=== PATIENT | female | born 1970 | race Caucasian/White ===

== ENCOUNTER 2017-01-24 15:54 | Emergency (ER) | payer OTHER ==
[~2017-01-24] VITALS: Ht 188 cm; Wt 100.0 kg
--- NOTE | 2017-01-24 15:55 | ED.REPORT ---
HPI-Trauma Multiple Date of Service Jan 24, 2017 ED Provider: Luiz Mesa Patient is a 46 year old female who presents to the ED via EMS complaining of neck pain s/p falling down 15 stairs at home with LOC. Associated symptoms include right upper abdominal pain and L ankle pain. Patient remembers falling, losing consciousness, waking, and then crawling up the stairs. She awoke feeling dizzy this morning prior to her fall but has seen her PCP for this problem as it has persisted for several weeks. She denies any new dizziness or vertiginous symptoms. She denies any weakness. Per medics, she has been GCS 15 and received 5 of morphine and 4 Zofran en route. She denies pelvic pain, vision changes, or any other symptoms. Nursing Notes Stated Complaint: FALL Nursing Notes Reviewed: Yes Allergies: Coded Allergies: sumatriptan (Verified Allergy, Severe, Shortness of Breath, 01/24/17) Scheduled PRN Hydrocodone-Acetaminophen 5-325 mg (Hydrocodone-Acetaminophen 5-325 mg) 1 Each Tablet 1 TABLET PO Q4H PRN PRN For Pain General Time Seen by Provider: 15:55 Chief Complaint Other (Fall down stairs ) Hx Obtained From: Patient, EMS Arrived By: Ambulance Onset Occurred: Just prior to arrival Past Medical History Past Medical History Reports: Hypertension Past Surgical History Unknown Smoking History Unknown if Ever Smoker Review of Systems Review of Systems Note: -pelvic pain GI: Reports: Abdominal pain Musculoskeletal: Reports: Joint pain, Neck pain Neurologic: Reports: Change LOC, Denies: Vision change Complete sys rev & neg: except as marked. Physical Exam Physical Exam Notes: FAST negative Initial Vital Signs Vital Signs (First) Date Time Temp Pulse Resp B/P Pulse Ox O2 Delivery O2 Flow Rate FiO2 01/24/17 18:49 36.6 87 15 135/100 95 Room Air Initial VS: Reviewed General/Constitutional: Awake, Alert, Well developed Head / Eyes: Atraumatic, Normocephalic, PERRL 3 mm pupils Trauma - Neck Specific: Positive: Immobilized - C Collar, Immobilized - spine board Mid cervical C4-5 tenderness. no deformity or step off Respiratory / Chest: Breath sounds NL, Breath sounds = bilat, No respiratory distress, No chest wall deformity Mild R chest wall tend Cardiovascular: Peripheral circulation NL, Pulses = bilaterally Abdomen: Soft Tender to palpation at RUQ Back: Atraumatic Mild lumbosacral tend, Neurologic: Oriented X3, Speech NL ENT: Tympanic membs NL Upper Extremity / MS: Atraumatic Movement of L arm causes tenderness in neck Lower Extremity / Pelvis / MS: Atraumatic Ankle / Foot: No deformity Left Ankle: Positive: Tenderness present... Good DP pulses bilat Female Genitourinary: Helper Teacher present, Atraumatic no blood at the meatus Rectum / Perineum: Sphincter tone NL Interpretation & Diagnostics Lab Results Interpretation Result Diagram: 01/24/17 1638 01/24/17 1557 Test 01/24/17 15:57 01/24/17 16:38 White Blood Count 13.2th/mm3 (3.8-10.1) Red Blood Count 5.13mil/mm3 (3.90-5.20) Mean Corpuscular Volume 88.1fL (81-100) Mean Corpuscular Hemoglobin 29.2pg (27.0-35.0) Mean Corpuscular Hemoglobin Concent 33.2% (32.0-37.0) Red Cell Distribution Width 13.5% (12.3-15.4) Platelet Count 323bil/L (150-400) Neutrophils (%) (Auto) 68.3% (40-74) Lymphocytes (%) (Auto) 23.0% (14-46) Monocytes (%) (Auto) 6.1% (4-12) Eosinophils (%) (Auto) 1.8% (0-5) Basophils (%) (Auto) 0.2% (0-3) Prothrombin Time 9.9sec (8.1-12.5) Prothromb Time International Ratio 0.93ratio Activated Partial Thromboplast Time 26.5sec (22.8-33.0) Sodium Level 134mEq/L (134-144) Potassium Level 4.5mEq/L (3.5-5.2) Chloride Level 96mEq/L (97-108) Carbon Dioxide Level 23mmol/L (18-29) Blood Urea Nitrogen 11mg/dL (6-24) Creatinine 0.61mg/dL (0.57-1.00) Estimat Glomerular Filtration Rate 151mL/min (>59) Glucose Level 117mg/dL (60-99) Calcium Level 9.8mg/dL (8.5-10.1) Total Bilirubin 0.5mg/dL (0.0-1.2) Aspartate Amino Transf (AST/SGOT) 41U/L (0-50) Alanine Aminotransferase (ALT/SGPT) 44U/L (0-32) Alkaline Phosphatase 82U/L (25-150) Total Protein 7.5g/dL (6.4-8.4) Albumin 4.3g/dL (3.4-5.0) Human Chorionic Gonadotropin, Qual Negative (Negative) Hold Lu Top Tube Received (Received) Alcohols < 10mg/dL (0-10) Hemoglobin 13.9g/dL (12.0-15.6) Hematocrit 41.8% (35.0-46.0) X-Ray Chest Interpretation Chest Xray Interpretation: IMPRESSION: No acute cardiopulmonary disease. Dictated by: Joel Wild M.D. on 01/24/2017 at 15:55 Approved by: Joel Wild M.D. on 01/24/2017 at 15:56 View: Portable, 1 view Interpretation / Wet Read by: Interpret - Radiologist X-Ray Interpretation Xray Interpretation: IMPRESSION: Status post remote distal fibular and medial malleolar fracture fixation, without superimposed acute bony injuries. Dictated by: Joel Wild M.D. on 01/24/2017 at 15:51 Approved by: Joel Wild M.D. on 01/24/2017 at 15:53 X-Ray Ordered: Ankle left Interpretation / Wet Read by: Interpret - Radiologist Xray Interpretation: IMPRESSION: Small age indeterminate avulsion fractures from the medial malleolar tip. Dictated by: Joel Wild M.D. on 01/24/2017 at 15:53 Approved by: Joel Wild M.D. on 01/24/2017 at 15:55 X-Ray Ordered: Ankle right Interpretation / Wet Read by: Interpret - Radiologist CT Head Interpretation IMPRESSION: No acute intracranial abnormality. Dictated by: Roman Peralta M.D. on 01/24/2017 at 16:55 Approved by: Roman Peralta M.D. on 01/24/2017 at 16:56 Study: Head CT no contrast Interpretation / Wet Read by: Interpret - Radiologist CT Abd / Pelvis Interpretation IMPRESSION: No acute pathology in the chest, abdomen or pelvis. Dictated by: Felipe Burch M.D. on 01/24/2017 at 17:08 Approved by: Felipe Burch M.D. on 01/24/2017 at 17:15 Study type: Abdominal CT IV contrast Interpretation / Wet Read by: Nicolás w radiologist CT C-Spine Interpretation IMPRESSION: No fracture. Dictated by: Roman Peralta M.D. on 01/24/2017 at 16:58 Approved by: Roman Peralta M.D. on 01/24/2017 at 17:00 Study type: CT no contrast Interpretation / Wet Read by: Interpret - Radiologist Procedures Splint Application - Fx Mgt Time: 18:13 Procedure Performed by: Allied health pract Precise Anatomic Location: R foot boot Post-Procedure / Complications: Cap refill normal, Post splint vascular nl, Post splint neuro nl, Condition improved, Tolerated procedure well, Patient stable Splint Post-Applic Eval Extremity Condition: Cap refill < 2 sec, Distal sensation intact, Distal motor Intact, No compartment syndrome Re-Eval/Medical Decision Med Decision/Clinical Course Patient is a 46 year old female who presents to the ED via EMS complaining of neck pain s/p falling down 15 stairs at home with LOC. Associated symptoms include right upper abdominal pain and R ankle pain. Here in the emergency department the patient is afebrile with stable vital signs and examination as above. Laboratory studies notable as below: WBC 13.2 cbc unremark. HCT 45.2 CMP unremark HCG neg coag nL Patient was maintained in cervical collar. Primary survey was reassuring and full secondary survey was conducted as above. Treated with IV fluids, Zofran for nausea and hydromorphone for pain. X-ray of the right ankle demonstrated small age indeterminate avulsion fractures from the medial malleolar tip. Remainder of imaging studies including CT of the cervical spine and head were unremarkable. Patient was placed in boot and provided with crutches. She will follow up with orthopedic surgery regarding above described possible fracture. Repeat evaluation of the patient's neck revealed ongoing midline tenderness though there is no evidence of any bony injury. I suspect that this is related to muscle sprain however patient will be maintained in cervical collar until follow-up with primary care physician which time C-spine and be reassessed. Patient has been discharged with a prescription for pain medication. At this time, I feel she is appropriate for discharge home.Prior to discharge follow-up and return precautions were reviewed in detail with the patient who verbalized understanding and agreement with the plan. The patient was discharged in stable condition. Re-Evaluation/Progress : Time of Eval: 18:12 Re-Evaluation/Progress Note: Rechecked pt. Discussed plan for discharge. Patient understands and agrees with plan. All questions addressed at this time. Counseled Regarding: Diagnosis, Lab results, Need for follow-up, Need for admission Discharge & Departure Impression: Primary Impression: Fall down stairs Encounter type: initial encounter Qualified Code: W10.8XXA - Fall (on) (from ) other stairs and steps, initial encounter Additional Impressions: Neck sprain Encounter type: initial encounter Qualified Code: S13.9XXA - Sprain of joints and ligaments of unspecified parts of neck, initial encounter Closed right ankle fracture Encounter type: initial encounter Qualified Code: S82.891A - Other fracture of right lower leg, initial encounter for closed fracture Disposition: Home Discharge Condition All VS Reviewed: Yes Condition: Stable Additional Instructions: Thank you for seeking care at the emergency room. You were seen for a fall down stairs. Our primary goal today in the ED was to evaluate you for any life-threatening conditions. Your evaluation was reassuring. You may have a small fracture in your right ankle. Please use the crutches and ankle boot as directed and follow-up with the orthopedic doctors. Wear the collar at all times until directed to remove it by your primary provider. You will be discharged with a prescription for pain medication, please take as directed. You should follow-up with your primary doctor in the next week. You should return to the ED immediately if you develop worsening pain, difficulty walking, headache, fevers, vomiting, cough, shortness of breath, chest pain, lightheadedness, weakness or any other concerning signs or symptoms. Thank you for letting us partake in your care today. Narcotic Pain Medicine You have been prescribed a narcotic for pain relief. These drugs are usually combined with acetaminophen (Tylenol#3, Percocet, Darvocet, Anexsia, Vicodin) or aspirin (Empirin#3, Percodan, Synalogs-DC) for increased effect. Narcotics act on the central nervous system to reduce pain; they also impair mental alertness and physical abilities. We advise you not to drink alcohol, drive a car, or operate dangerous equipment when you are taking these drugs. You can lessen stomach irritation from your medicine by taking it with meals or a full glass of water. Common side effects of narcotics are: Nausea and vomiting , heartburn, constipation, dizziness, sleepiness, and mood changes. If you have bothersome side effects or symptoms of an allergic reaction (itching, hives, rash), stop taking your medicine and call your doctor or the emergency room right away. Please keep your narcotic medicine well out of the reach of children. Referrals: Luan Arcos MD Scribe Attestation Portions of this note were transcribed by Gwendolyn Hernandez. I, Dr. Mesa personally performed the history, physical exam and medical decision-making; I reviewed and confirmed the accuracy of the information in the transcribed note. Signed by: Gwendolyn Hernandez 01/24/2017, 1816 Luiz Mesa MD Jan 24, 2017 15:55 GWENDOLYN HERNANDEZ Jan 24, 2017 16:04
[2017-01-24] MEDS ORDERED: 0.9% Sodium Chloride 1,000 ML IV ONE (16:12)
[2017-01-24] MEDS ORDERED: Ondansetron 2 mg/mL 2 mL Inj IVPUSH ONE (16:15)
[2017-01-24 16:19] LABS: BASOPHILS % (AUTO) 0.2 % (0-3); EOSINOPHILS % (AUTO) 1.8 % (0-5); MONOCYTES % (AUTO) 6.1 % (4-12); Mean Corpuscular Hemoglobin 29.2 pg (27.0-35.0); Mean Corpuscular Volume 88.1 fL (81-100); NEUTROPHILS % (AUTO) 68.3 % (40-74); Platelet Count 323 bil/L (150-400)
[2017-01-24 16:26] LABS: INR 0.93 ratio
--- NOTE | 2017-01-24 16:54 | DRSVH ---
PROCEDURE: X-RAY LEFT ANKLE, MINIMUM THREE VIEWS ([id number]) INDICATIONS: 46 year-old female with left ankle pain after fall down stairs. TECHNIQUE: 3 views of the ankle were acquired. COMPARISON: None available. FINDINGS: Bones: No acute fractures or dislocations. Medial malleolar and distal fibular fracture fixation hurd rdware appears intact and in expected positions. Ankle mortise is normally aligned. No suspicious alicia ny lesions. Soft tissues: No tibiotalar joint effusion. Achilles tendon appears normal. IMPRESSION: Status post remote distal fibular and medial malleolar fracture fixation, without superim posed acute bony injuries. Dictated by: Joel Wild M.D. on 01/24/2017 at 15:51 Approved by: Joel Wild M.D. on 01/24/2017 at 15:53
--- NOTE | 2017-01-24 16:56 | DRSVH ---
PROCEDURE: X-RAY RIGHT ANKLE, MINIMUM THREE VIEWS ([id number]) INDICATIONS: 46 year-old female with right ankle pain after fall down stairs. TECHNIQUE: 3 views of the ankle were acquired. COMPARISON: None. FINDINGS: Bones: There is small age indeterminate avulsion fracture from the medial malleolar tip. There is alicia ny irregularity of the distal fibula, consistent with nonacute lateral ligament injury. Ankle mortise is normally aligned. No suspicious bony lesions. Soft tissues: No tibiotalar joint effusion. Achilles tendon appears normal. IMPRESSION: Small age indeterminate avulsion fractures from the medial malleolar tip. Dictated by: Joel Wild M.D. on 01/24/2017 at 15:53 Approved by: Joel Wild M.D. on 01/24/2017 at 15:55
--- NOTE | 2017-01-24 16:57 | DRSVH ---
PROCEDURE: X-RAY CHEST ONE VIEW, PORTABLE ([id number]) INDICATIONS: 46 year-old female status post fall down stairs. TECHNIQUE: One view of the chest was acquired. COMPARISON: None. FINDINGS: Surgical changes and devices: None. Lungs and pleura: No pleural effusions or pneumothorax. Lungs are clear. Mediastinum: Mediastinal contours appear normal. Heart size is normal. Bones and chest wall: No suspicious bony lesions. Overlying soft tissues appear unremarkable. IMPRESSION: No acute cardiopulmonary disease. Dictated by: Joel Wild M.D. on 01/24/2017 at 15:55 Approved by: Joel Wild M.D. on 01/24/2017 at 15:56
--- NOTE | 2017-01-24 16:57 | DRSVH ---
PROCEDURE: CT BRAIN WITHOUT CONTRAST ([id number]) INDICATIONS: trauma TECHNIQUE: Noncontrast 4.5 mm thick angled axial sections acquired from the foramen magnum to the vertex, with c oronal reformats. COMPARISON: None. FINDINGS: Image quality: Excellent. CSF spaces: Basal cisterns are patent. No extra-axial fluid collections. Ventricles are normal in size and shape. Brain: No midline shift. No intracranial masses or hemorrhage. Vásquez-white matter interface is norm al. Skull and face: Calvarium and visualized facial bones are intact, without suspicious lesions. Sinuses: Mild left maxillary sinus mucosal thickening is present. Visualized sinuses and mastoids ar e otherwise clear. IMPRESSION: No acute intracranial abnormality. Dictated by: Roman Peralta M.D. on 01/24/2017 at 16:55 Approved by: Roman Peralta M.D. on 01/24/2017 at 16:56
[2017-01-24] MEDS: HYDROmorphone 0.5 mg/0.5 mL iSecure Syringe IVPUSH PRN ×2 (17:00→18:12)
--- NOTE | 2017-01-24 17:02 | DRSVH ---
PROCEDURE: CT CERVICAL SPINE WITHOUT CONTRAST ([id number]) INDICATIONS: trauma TECHNIQUE: Noncontrast 3 mm thick sections acquired from the skull base to the T4 level. Sagittal and coronal r eformats were then constructed. For radiation dose reduction, the following was used: automated exp osure control, adjustment of mA and/or kV according to patient size. COMPARISON: None. FINDINGS: Image quality: Excellent. Bones: No fractures or dislocations. Visualized superior ribs are intact. Soft tissues: Prevertebral soft tissues are normal in thickness. No paravertebral hematomas. No ap ical pneumothoraces. IMPRESSION: No fracture. Dictated by: Roman Peralta M.D. on 01/24/2017 at 16:58 Approved by: Roman Peralta M.D. on 01/24/2017 at 17:00
--- NOTE | 2017-01-24 17:22 | DRSVH ---
PROCEDURE: CT CHEST, ABDOMEN AND PELVIS WITH CONTRAST ([id number]) INDICATIONS: trauma TECHNIQUE: After the administration of intravenous contrast, 5 mm thick sections acquired from the lung apices t o the symphysis. 5 mm coronal and sagittal reformats were performed, with additional 7 mm MIP reform ats through the lungs. For radiation dose reduction, the following was used: automated exposure con trol, adjustment of mA and/or kV according to patient size. COMPARISON: None. FINDINGS: Image quality: Excellent. CHEST: Lungs and pleura: No acute airspace opacities. No pleural effusions or pneumothorax. Central and p eripheral airways appear patent and normal in caliber. Mediastinum: Heart size is normal. No pericardial effusion. No mediastinal or hilar adenopathy by size criteria. Thoracic aorta and central pulmonary arteries are normal in size. Esophagus is brittany l in caliber. No hiatal hernia. Chest wall: No axillary or supraclavicular adenopathy by size criteria. Thyroid gland is present . ABDOMEN: Solid organs: Liver and spleen are normal in size and enhancement. Gallbladder is normal. Biliary system is non dilated. Pancreas enhances normally. No adrenal nodules. Kidneys demonstrate normal size and enhancement, without hydronephrosis. Peritoneum and bowel: Bowel loops demonstrate normal wall thickness and caliber. No free fluid or a ir. Nodes and vessels: No retroperitoneal or mesenteric adenopathy by size criteria. Aorta and inferior vena cava are normal in size. Miscellaneous: No ventral hernias. PELVIS: Genitourinary: Bladder wall thickness is normal. Miscellaneous: No inguinal hernias or adenopathy. Bones: No suspicious bony lesions. No vertebral body compression fractures. IMPRESSION: No acute pathology in the chest, abdomen or pelvis. Dictated by: Felipe Burch M.D. on 01/24/2017 at 17:08 Approved by: Felipe Burch M.D. on 01/24/2017 at 17:15
[2017-01-24] MEDS ORDERED: HYDR-4003 PO (18:13)
[2017-01-24 18:49] VITALS: BP 135/100; PULSE 87; RESP 15; O2SAT 95
== END 2017-01-24 18:55 | disposition home or self-care (01) ==
LOC: SED 15:54
DX: S82.891A Other fracture of right lower leg, initial encounter for closed fracture (principal); S13.9XXA Sprain of joints and ligaments of unspecified parts of neck, initial encounter; R10.11 Right upper quadrant pain; W10.8XXA Fall (on) (from) other stairs and steps, initial encounter; Y93.9 Activity, unspecified; Y99.8 Other external cause status; Y92.009 Unspecified place in unspecified non-institutional (private) residence as the place of occurrence of the external cause; I10 Essential (primary) hypertension; Z88.8 Allergy status to other drugs, medicaments and biological substances
CPT/HCPCS: 36415; 70450; 71010; 71260; 72125; 73610; 74177; 80053; 84703; 85014; 85018; 85025; 85610; 85730; 86850; 90791; 96361; 96374; 96375; 96376; 99285; G0390; G0480; J1170; J2405; J7030; Q9967